=== PATIENT | male | born 2000 | race Two or more races ===

== ENCOUNTER 2025-04-05 02:12 | Emergency (ER) | payer MEDICAID ==
[~2025-04-05] VITALS: Ht 162.6 cm; Wt 61.0 kg
[2025-04-05 02:14] VITALS: TEMP 97.8
[2025-04-05 02:26] LABS: MEAN PLATELET VOLUME 7.8 FL (7.4-10.4); RED CELL DISTRIBUTION WIDTH 14.0 % (11.5-14.5)
--- NOTE | 2025-04-05 02:40 | Physician Documentation ---
History of Present Illness ~ Chief Complaint: Abdominal Pain Stated Complaint: ABD PAIN A BLS Time Seen by MD: 02:39 Primary Medical Doctor: none HPI Patient presents to the emergency room for evaluation of diffuse abdominal pain that began this evening. He endorses diarrhea. Pain comes in waves as his described as cramping in nature. No nausea or vomiting. He is declining pain medication Medication Reconciliation Allergies: Coded Allergies: No Known Allergies (Unverified , 04/05/25) Review of Systems ROS All review of systems negative except as per HPI Physical Exam Vital Signs: Temperature: 97.8, Heart Rate: 49, Respiratory Rate: 16, BP: 120/79, Pulse Oximetry: 100, Weight: 61.000 Oxygen Flow Rate: 0 Physical Exam General: Patient is awake, alert, oriented x4 in no acute distress and well appearing.~ Head: Normocephalic and atraumatic. Eyes: Conjunctival normal. EOMI. PERRL. ENT: Mucous membranes moist. Neck: Supple, trachea is midline. Chest: Clear to auscultation bilaterally without rales, rhonchi, or wheezes. There is no accessory muscle use or retractions. Cardiac: RRR without murmurs, gallops, or rubs. Abd: Soft, nondistended, mild diffuse tenderness to palpation without peritonitis Progress Results/Orders Results/Orders Orders - KUMAR BLANCO MD Urinalysis, Cult If Indicated (04/05/25 02:13) Completed Orders - KUMAR BLANCO MD Cbc/Diff (04/05/25 02:13) Lipase (04/05/25 02:13) CMP (04/05/25 02:13) Vital Signs 04/05/25 04/05/25 02:14 02:22 Temp 97.8 Pulse 49 Resp 16 B/P (MAP) 120/79 Pulse Ox 100 O2 Flow Rate 0 Laboratory Tests Test 04/05/25 02:19 White Blood Count 10.4 Red Blood Count 5.55 Hemoglobin 16.1 Hematocrit 47.9 Mean Corpuscular Volume 86.4 Mean Corpuscular Hemoglobin 29.0 Mean Corpuscular Hemoglobin Concent 33.5 Red Cell Distribution Width 14.0 Platelet Count 210 Mean Platelet Volume 7.8 Neutrophils (%) (Auto) 45.9 Lymphocytes (%) (Auto) 33.6 Monocytes (%) (Auto) 7.0 Eosinophils (%) (Auto) 12.8 H Basophils (%) (Auto) 0.7 Neutrophils # (Auto) 4.8 Lymphocytes # (Auto) 3.5 Monocytes # (Auto) 0.7 Eosinophils # (Auto) 1.3 H Basophils # (Auto) 0.1 CBC Comment Sodium Level 139 Potassium Level 4.7 Chloride Level 105 Carbon Dioxide Level 29.6 Anion Gap 4 L Blood Urea Nitrogen 12 Creatinine 1.04 Estimated GFR/1.73 m2 87 BUN/Creatinine Ratio 11.5 Glucose Level 106 H Calcium Level 8.8 Total Bilirubin 0.4 Aspartate Amino Transf (AST/SGOT) 20 Alanine Aminotransferase (ALT/SGPT) 18 Alkaline Phosphatase 80 Total Protein 7.3 Albumin 4.3 Globulin 3.0 Albumin/Globulin Ratio 1.4 Lipase 127 H Chemistry Comments Medical Decision Making Findings Patient presents to the emergency room with abdominal pain and diarrhea as per HPI. Differentials include but are not limited to dehydration electrolyte disturbances viral syndrome constipation C diff. that has patient had have acute onset of diarrhea and he had not feel he was suffering from Clostridium difficile. Labs reassuring. Although patient endorses pain that has not in the to the point where he feels he needs anything for pain and given reassuring labs I do not feel CT scan is warranted as I believe risk of radiation exposure outweighs any benefit at this juncture. I believe he is suffering cramps from his diarrhea. Noted elevation of patient's lipase however it is not 3 times the upper limit of normal and I do not feel this represents janessa pancreatitis but rather cramping from his GI issues at this time. ER precautions discussed Departure Disposition: 01 HOME / SELF CARE / HOMELESS Impression: Primary Impression: Enteritis Condition: Stable Discharge Instructions: Diarrhea, Adult, [id number] Referrals: NO PRIMARY CARE PROVIDER (PCP) Prescriptions Loperamide Hcl (Loperamide) 2 Mg Capsule 2 CAP PO Q6H for loose stool for 5 Days, #40 CAP 0 Refills Prov: KUMAR BLANCO MD 04/05/25 Education Educated: Patient Educated regarding: diagnosis, treatment, need for follow up Signature Scribe Signature: No scribe Attestation: The note accurately reflects work and decisions made by me.Kumar Blanco MD 04/05/25 02:56 KUMAR BLANCO MD Apr 05, 2025 02:39
[2025-04-05 02:41] LABS: CREATININE 1.04 MG/DL (0.60-1.10); TOTAL CARBON DIOXIDE 29.6 MMOL/L (24-32); eCRCL 91 ML/MIN; eGFR 87 ML/MIN
[2025-04-05] MEDS ORDERED: LOPE2CAP PO (02:56)
[2025-04-05] MEDS: loperamide 2mg capsule PO ONE (03:08)
[2025-04-05 03:12] VITALS: BP 115/74; PULSE 53; RESP 15; O2SAT 98
== END 2025-04-05 03:13 | disposition home or self-care (01) ==
LOC: ER 02:13
DX: K52.9 Noninfective gastroenteritis and colitis, unspecified (principal)
CPT/HCPCS: 36415; 80053; 83690; 85025; 99283